=== PATIENT | female | born 1960 | race Caucasian/White ===

== ENCOUNTER → 2021-08-11 | Outpatient (CLI) | payer OTHER ==
[~2021-08-11] MED LIST: ASPIR-LOW81 MG PO; ESTROVEN; HCTZ 25MG25 MG PO; MVI; PRILOSEC 20MG20 MG PO; REQUIP 1MG T1 MG/TAB PO; SYNTHROID0.125 MG/T PO; TOPROL XL100 MG PO; VITAMIN D
== END ==
LOC: COL.RAD 12:49
DX: M47.816 Spondylosis without myelopathy or radiculopathy, lumbar region (principal); M51.26 Other intervertebral disc displacement, lumbar region; M51.36 Other intervertebral disc degeneration, lumbar region; M48.061 Spinal stenosis, lumbar region without neurogenic claudication; Z98.1 Arthrodesis status
CPT/HCPCS: A9575

== ENCOUNTER → 2022-11-17 | Outpatient (RCR) | payer OTHER | END | disposition home or self-care (01) | LOC: WSPT | DX: Z98.1 Arthrodesis status (principal) ==

== ENCOUNTER 2022-12-16 13:30 | Outpatient (RCR) | payer OTHER | END 2022-12-17 | disposition home or self-care (01) | LOC: WSPT | DX: M43.10 Spondylolisthesis, site unspecified (principal); M43.8X9 Other specified deforming dorsopathies, site unspecified; M40.30 Flatback syndrome, site unspecified; M48.062 Spinal stenosis, lumbar region with neurogenic claudication; Z98.1 Arthrodesis status ==